=== PATIENT | female | born 1975 ===

== ENCOUNTER 2022-08-18 20:14 | Emergency (ER) | payer OTHER, SELFPAY ==
--- NOTE | ~2022-08-18 | XR_ITS ---
EXAMINATION: XR WRIST, RIGHT XR HAND, RIGHT CLINICAL INFORMATION: Pain. Decreased range of motion COMPARISON: None available. TECHNIQUE: PA, lateral, and oblique views of the right wrist and PA, lateral, and oblique views of the right hand FINDINGS: RIGHT WRIST: The bones and soft tissues are normal. No fracture. Alignment is anatomic. Joint spaces are maintained. No erosions or soft tissue calcifications. RIGHT HAND: The bones and soft tissues are normal. No fracture. Alignment is anatomic. Joint spaces are maintained. No erosions or soft tissue calcifications. XR/XR hand wrist RT IMPRESSION: Normal right hand and wrist.
[2022-08-18 20:18] VITALS: BP 219/100; PULSE 90; RESP 18; TEMP 36.6; O2SAT 98; BMI 32.3
--- NOTE | 2022-08-18 20:19 | ED.UPPEXIN ---
HPI - Extremity Injury (Upper) General Chief Complaint: Extremity Problem Stated Complaint: Right arm pain Time Seen by Provider: 08/18/22 21:31 Source: patient Mode of arrival: ambulatory Limitations: no limitations History of Present Illness HPI narrative: 46-year-old female who presents emergency department for evaluation of right wrist and hand pain x2 days. Patient states that the pain came on gradually. She states that her wrist and hand is swollen and warm to the touch. She denies any injury. She states that she has a similar presentation 2 to 3 times a year and usually involves either the wrist or elbow of her upper extremities. She states that she did have gout many years ago in her left foot and ankle. She denied any recent injury. She denied fever, chills, rhinorrhea, sore throat, cough, chest pain, shortness of breath. Patient states she was recently diagnosed with diabetes and prescribed metformin but has not started this medication yet secondary to the side effect profile. Related Data Previous Rx's Medication Instructions Recorded prednisone 20 mg tablet 40 mg PO DAILY 5 days #10 tabs 08/18/22 Allergies Allergy/AdvReac Type Severity Reaction Status Date / Time No Known Allergies Allergy Verified 08/18/22 20:19 Review of Systems Review of Systems: Yes all other systems are reviewed and are negative [facility]LY [facility] Past Medical History [facility] Narrative: Past medical history: Diabetes mellitus. Social history: She does smoke cigarettes. She denies tobacco and alcohol use. The patient works for the [employer]. Social History Social History Alcohol intake: never Physical Exam Vital Signs: Vital Signs: Last Vital Signs Temp 98.6 F 08/18/22 21:21 Pulse 82 08/18/22 21:21 Resp 16 08/18/22 21:21 BP 145/80 H 08/18/22 21:21 Pulse Ox 100 08/18/22 21:21 O2 Del Method Room Air 08/18/22 21:21 BMI result Body Mass Index 32.3 Elevated blood pressure 145/80. General: Awake, alert, female patient, very pleasant cooperative. No distress Extremities: Patient's right hand and wrist is swollen and warm to the touch, patient has significant pain with minimal movement of her right wrist. She has no increased warmth or swelling of her right elbow or left upper extremity. Her extremities are neurovascular intact RME: 46yo F w/PMHx newly dx DM stated on Metformin (which she hasn't started) c/o R wrist/hand pain x2 days w/decreased ROM. admits to similar sx in the past. denies injury/trauma, fall Patient guarding RUE, diffuse right wrist and hand tenderness with decreased ROM. No erythema/warmth. Neurovascularly intact Hypertensive in triage, EKG a, POC, x-rays ordered Full HPI, ROS and PE to be performed by primary ED provider. Medical Decision Making Medical Decision Making [facility] Narrative: 46-year-old female who presents emergency department for evaluation of gradual onset of pain and swelling of her right hand and wrist. Patient does have a remote history of gout. She states that she gets pain, swelling increased warmth of her wrist and elbow 2 to 3 times a year. Patient denies any injury or trauma. She was recently diagnosed with diabetes mellitus and has not started her metformin yet. Provider at triage ordered a point of care glucose, EKG and x-ray of the right hand and wrist. 2201: Patient's presentation and physical findings are most consistent with gout versus inflammatory arthritis. Infectious arthritis is unlikely specially since she similar symptoms 2-3 times a year and has had no systemic symptoms. Point of care glucose was elevated 169 12 EKG revealed no acute findings. X-rays revealed no acute findings on the radiology interpretation and on my interpretation. Patient was placed in a Velcro wrist splint to help reduce her pain with movement. She is to wear this for 5 days Differential Diagnosis Differential Diagnoses: The differential diagnosis associated with the presentation includes Differential diagnosis includes was not limited to inflammatory arthritis, gout, septic joint Lab Data [facility] Lab Attestation statement: I reviewed the patient's lab results. My interpretation of patient's point of care glucose is that as elevated at 169. This is noncontributory to the patient's presentation. Labs: Lab Results 08/18/22 Range/Units 20:39 POC Glucose 169 H (60-115) mg/dL Independent Interpretation I performed an independent interpretation of an: EKG Interpretation: My interpretation of patient's right hand wrist x-rays as follows: No acute disease noted, no fracture My independent interpretation patient's 12 EKG is as follows: Normal sinus rhythm rate of 81, normal AR interval, QRS duration and QTC intervals, no ST segment elevation, no ST segment depression, no significant T-wave abnormalities. Q-waves V1 and V2. No old EKG for comparison. Radiology Impression Discussion of test interpretation with radiology: I have reviewed the radiologist's reading. Radiologist Impression: XR hand wrist RT IMPRESSION: Normal right hand and wrist. Dictated By:Wu Torres MD Prescription Management I considered prescription management with: Pain Medication Chronic Conditions Patient?s care impacted by: Diabetes Discharge Plan Discharge Clinical Impression: Arthritis of right wrist Patient Disposition: Home, Self-Care Additional Instructions: Your physical exam is consistent with an inflammatory arthritis of your right wrist. This could be caused by gout. There are other causes of inflammatory arthritis, but usually these involve the same joint on both sides of your body. You should follow-up with her doctor to discuss possible workup for gout verses inflammatory arthritis due to other causes. You should start your metformin as prescribed by your doctor Take prednisone 20 mg pills, 2 pills once a day for 5 days. This is a strong anti-inflammatory medication. While you are taking prednisone, do not take any anti-inflammatory NSAIDs (Motrin, Advil, ibuprofen, Aleve, naproxen). Prednisone will increase your blood sugars so it is important to drink fluid to stay hydrated while your on the prednisone and to try to stay on a diabetic diet. Take Tylenol (acetaminophen) 500 mg pills, 2 pills every 4 to 6 hours as needed for pain. Follow-up with your doctor in 2 days. Please return to the emergency department if your symptoms get worse or if you develop any symptoms that are concerning to you. Please see work note Wear the wrist splint for 5 days, keep your wrist elevated to help reduce the swelling You should start taking your metformin as prescribed by your provider. Your goal should be to get your blood sugar below 100 over the next 3-6 months. It is very important that you follow-up with your doctor to aggressively manage her diabetes. Untreated diabetes over time leads to stroke, heart attack and kidney failure Your blood pressure was elevated at 145/80. You should follow-up with her doctor to discuss treatment for possible high blood pressure as well. Prescriptions: New prednisone 20 mg tablet 40 mg PO DAILY 5 Days Qty: 10 0RF Stand Alone Forms: Work/School Release
--- NOTE | 2022-08-18 20:22 | ECG_ITS ---
Test Reason : right shoulder pain Blood Pressure : / mmHG Vent. Rate : 081 BPM Atrial Rate : 081 BPM P-R Int : 172 ms QRS Dur : 070 ms QT Int : 388 ms P-R-T Axes : 051 -14 069 degrees QTc Int : 450 ms Normal sinus rhythm Septal infarct , age undetermined Abnormal ECG No previous ECGs available Referred By: eZny Rivera Electronically Signed By:Jeff Morales
[2022-08-18 20:49] LABS: Glucose, Whole Blood 169 mg/dL (60-115)
[2022-08-18 21:21] VITALS: BP 145/80; PULSE 82; RESP 16; TEMP 37; O2SAT 100
--- OUTSIDE RECORDS SUMMARY | 2022-08-18 21:41 | XMS_ITS | Continuity of Care Document ---
Author Name Unknown Organization [facility] Address [address] [place] [address]- Care Team Providers Care Plate Conditioner Name Role Phone Connie Carr NP Primary Care Physician Encounter [facility] Date(s): 04/29/22 - 05/29/[address] [address]- Attending Physician: Rosa M Gates Admitting Physician: Rosa M Gates Referring Physician: Rosa M Gates Allergies, Adverse Reactions, Alerts No Known Allergies Immunizations Given and Recorded Vaccine Date Status Refusal Reason influenza virus vaccine, inactivated 02/06/19 Give n tetanus/diphtheria/pertussis, acel(Tdap) 11/08/11 Given Social History Social History Type Response Smoking Status 5-9 cigarettes (betw een 1/4 to 1/2 pack)/day in last 30 days entered on: 03/24/22 Sex Patient Care team information Care Team Personnel Name: Connie Carr NP Position: [facility] PCO Associate Professional Member Role: PCP Address: Address: [address] [place] [address]- Care Team Related Persons Name: LEE NAIR Address: home [address] [address] Name: ALFREDITO YOO Address: [address] [address]
--- OUTSIDE RECORDS SUMMARY | 2022-08-18 21:41 | XMS_ITS | Continuity of Care Document ---
Author Name Unknown Organization [facility] Address [address] [place] [address]- Care Team Providers Care Millinery Department Manager Name Role Phone Connie Carr NP Primary Care Physician [phone] [facility] Date(s): 06/28/22 - 07/28/22 [facility] [address] [place] [address]- Attending Physician: Rosa M Gates Admitting Physician: Rosa M Gates Referring Physician: Rosa M Gates Allergies, Adverse Reactions, Alerts Substance Reaction Severity Status Seasonale Active Immunizations Given and Recorded Vaccine Date Status Refusal Reason influenza virus vaccine, inactivated 02/06/19 Give n tetanus/diphtheria/pertussis, acel(Tdap) 11/08/11 Given Problem List Condition Confirmation Course Effective Dates Status Health St [facility] Informant Obese class II Confirmed Active Social History Social History Type Response Smoking Status 5-9 cigarettes (betw een 1/4 to 1/2 pack)/day in last 30 days entered on: 03/24/22 Sex Patient Care team information Care Team Personnel Name: Connie Carr NP Position: [facility] PCO Associate Professional Member Role: PCP Address: Address: [address] [place] [address]- Care Team Related Persons Name: KOREY LEE Address: home [address] [address] Name: ALFREDITO YOO Address: home [address] [place] [address]
--- OUTSIDE RECORDS SUMMARY | 2022-08-18 21:41 | XMS_ITS | Continuity of Care Document ---
Author Name Unknown Organization [facility] Address [address], [place] [address]- Care Team Providers Care Chinese Language Professor Name Role Phone Connie Carr NP Primary Care Physician Encounter [facility] Date(s): 04/01/22 - 05/15/22 [facility] [address] [place] [id number] Attending Physician: Connie Carr NP Allergies, Adverse Reactions, Alerts No Known Allergies [...] Associate Professional Member Role: PCP Address: Address: [address] [place] [id number] Care Team Related Persons Name: KOREYLEE Address: home [address] [facility] [address] [address] Name: ALFREDITO YOO Address: home [address] [address]
--- OUTSIDE RECORDS SUMMARY | 2022-08-18 21:41 | XMS_ITS | Continuity of Care Document ---
Author Name Unknown Organization [facility] Address [address] [place] [address]- Care Team Providers Care Shared Services Representative Name Role Phone Connie Carr NP Primary Care Physician [phone] Encounter [facility] Date(s): 03/23/22 - 05/29/[address] [address]- Attending Physician: Not on Staff, Attending MD Allergies, Adverse Reactions, Alerts No Known Allergies [...] Associate Professional Member Role: PCP Address: Address: [address] [place] [address]- Care Team Related Persons Name: LEE NAIR Address: home [address] [facility] [address] [address] Name: ALFREDITO YOO Address: [address] [address]
--- OUTSIDE RECORDS SUMMARY | 2022-08-18 21:41 | XMS_ITS | Continuity of Care Document ---
Author Name Unknown Organization [facility] Address [address] [place] [address]- Care Team Providers Care Business Economist Name Role Phone Not on Staff, PCP Primary Care Physician Unavail able Encounter [facility] Date(s): 04/27/21 - 05/27/[address] [address] Attending Physician: Rosa M Gates Admitting Physician: Rosa M Gates Referring Physician: AdmtrRosa M Allergies, Adverse Reactions, Alerts No Known Allergies Immunizations Given and Recorded Vaccine Date Status Refusal Reason influenza virus vaccine, inactivated 02/06/19 Give n tetanus/diphtheria/pertussis, acel(Tdap) 11/08/11 Given
--- OUTSIDE RECORDS SUMMARY | 2022-08-18 21:41 | XMS_ITS | Continuity of Care Document ---
Author Name Unknown Organization [facility] Address [address] [place] [address]- Care Team Providers Care Collar Separator Name Role Phone Not on Staff, PCP Primary Care Physician Unavail able Encounter [id number] Date(s): 09/28/19 - 10/28/[address] [address]- [facility] Attending Physician: Rosa M Gates Admitting Physician: AdmRosa M martinez Referring Physician: Admtr, ArSamia Allergies, Adverse Reactions, Alerts Substance Reaction Severity Status NKA Active Immunizations Given and Recorded Vaccine Date Status Refusal Reason influenza virus vaccine, inactivated 02/06/19 Give n tetanus/diphtheria/pertussis, acel(Tdap) 11/08/11 Given
--- OUTSIDE RECORDS SUMMARY | 2022-08-18 21:41 | XMS_ITS | Continuity of Care Document ---
Author Name Unknown Organization [facility] Address [address] [facility], [address], [place] [address]- Care Team Providers Care Transitions Manager Name Role Phone Lilly STEELE, Connie Primary Care Physician Encounter [facility] Date(s): 06/16/22 - 06/23/22 [facility] [address] [facility], [address] [place] [address] Attending Physician: Justin Messina MD Referring Physician: Kelly Ruiz Allergies, Adverse Reactions, Alerts Substance Reaction Severity Status Seasonale Active Immunizations Given and Recorded Vaccine Date Status Refusal Reason influenza virus vaccine, inactivated 02/06/19 Give n tetanus/diphtheria/pertussis, acel(Tdap) 11/08/11 Given Medications ibuprofen 600 mg oral tablet 600 mg, 1, tablet, By Mouth, Every 6 hours, for 5 days, with menses. with food or milk., # 60 tablet, Refills 0, Tot. Refills 0, Acute 06/26/22 14:55:00 EDT, 06/21/22 14:55:00 EDT, Route to Pharmacy Electronically, [facility]/pharmacy #[id number], Partial fill... Start Date: 06/21/22 Stop Date: 06/26/22 Status: Ordered Problem List Condition Confirmation Course Effective Dates Status Health St atus Informant Obese class II Confirmed Active Vital Signs Most recent to oldest [Reference Range]: 1 Height 159.00 cm (06/16/22 1:27 PM) Weight 89.7 kg (06/16/22 1:27 PM) Pulse Rate [55-90 bpm] 83 bpm (06/16/22 1:27 PM) Body Mass Index [18.5-24.99 kg/m2] 35.48 kg/m2 *>HHI* (06/16/22 1:27 PM) Blood Pressure [90-138/55-84 mm Hg] 164/ 93mm Hg *H* (06/16/22 1:27 PM) Blood pressure sites Arm, left (06/16/22 1:27 PM) Dry Weight 89.7 kg (06/16/22 1:27 PM) Weight Obtained Via Standing scale (06/16/22 1:27 PM) Dry Weight Obtained Via Standing scale (06/16/22 1:27 PM) Social History Social History Type Response Smoking Status 5-9 cigarettes (betw een 1/ to 1/2 pack)/day in last 30 days entered on: 03/24/22 Sex Patient Care team information Care Team Personnel Name: Connie Carr NP Position: [facility] PCO Associate Professional Member Role: PCP Address: Address: [address] [place] [address]- Care Team Related Persons Name: LEE NAIR Address: home [address] [place] [address] Name: ALFREDITO YOO Address: [address] [address]
--- OUTSIDE RECORDS SUMMARY | 2022-08-18 21:41 | XMS_ITS | Continuity of Care Document ---
Author Name Unknown Organization [facility] Address [address] [facility], [address] [place] [address]- Care Team Providers Care Spa Consultant Name Role Phone Lilly STEELE, Connie Primary Care Physician [id number] Date(s): 07/30/22 - 08/06/[address] [facility] [address] [facility], [address] [place], [place] [address] Attending Physician: nIdiana Abdi MD Referring Physician: Kelly Ruiz Allergies, Adverse Reactions, Alerts Substance Reaction Severity Status Seasonale Active Immunizations Given and Recorded Vaccine Date Status Refusal Reason influenza virus vaccine, inactivated 02/06/19 Give n tetanus/diphtheria/pertussis, acel(Tdap) 11/08/11 Given Medications metFORMIN 500 mg oral tablet, extended release 1 tablet = 500 mg, By Mouth, 2 times a day, # 60 tablet, 1 Refills, Maintenance, 08/03/22 12:18:00 EDT, ER Tablet, [facility]/pharmacy #[id number], Partial fill upon patient request if the prescription is for a schedule II opioid drug., 159, cm, 07/30/22 13:58:00... Start Date: 08/03/22 Status: Ordered Problem List Condition Confirmation Course Effective Dates Status Health St at[facility] Informant Endometriosis Confirmed Active Hypertension Confirmed Active Obese class II Confirmed Active Current smoker Confirmed Active Vital Signs Most recent to oldest [Reference Range]: 1 2 Height 159.00 cm (07/30/22 1:58 PM) 159.00 cm (07/30/22 1:55 PM) Weight 89.72 kg (07/30/22 1:55 PM) Body Mass Index [18.5-24.99 kg/m2] 35.49 kg/m2 *>HHI* (07/30/22 1:55 PM) Blood Pressure [90-138/55-84 mm Hg] 150/ 90mm Hg *H* (07/30/22 1:58 PM) 170/100mm Hg *H* (07/30/22 1:55 PM) Blood pressure sites Arm, right (07/30/22 1:58 PM) Arm, left (07/30/22 1:55 PM) Social History Social History Type Response Smoking Status 5-9 cigarettes (betw een 1/4 to 1/2 pack)/day in last 30 days entered on: 03/24/22 Sex Patient Care team information Care Team Personnel Name: Connie Carr NP Position: [facility] PCO Associate Professional Member Role: PCP Address: Address: [address] [place] [address]- Care Team Related Persons Name: LEE NAIR Address: home [address] [address] Name: ALFREDITO YOO Address: home [address] [place] [address]
--- OUTSIDE RECORDS SUMMARY | 2022-08-18 21:41 | XMS_ITS | Continuity of Care Document ---
Author Name Unknown Organization [facility] Address [address] [place] [address]- Care Team Providers Care Masking Machine Feeder Name Role Phone Not on Staff, PCP Primary Care Physician Unavail able Encounter [facility] Date(s): 03/23/21 - 05/27/[address] [email or web address] Attending Physician: Not on Staff, Attending MD Allergies, Adverse Reactions, Alerts No Known Allergies Immunizations Given and Recorded Vaccine Date Status Refusal Reason influenza virus vaccine, inactivated 02/06/19 Give n tetanus/diphtheria/pertussis, acel(Tdap) 11/08/11 Given
--- OUTSIDE RECORDS SUMMARY | 2022-08-18 21:41 | XMS_ITS | Continuity of Care Document ---
Author Name Unknown Organization [facility] Address [address] [place] [address]- Care Team Providers Care Locomotive Inspector Name Role Phone Not on Staff, PCP Primary Care Physician Unavail able Encounter [facility] Date(s): 11/02/21 - 11/03/[address] [address]- Discharge Disposition: A-D/C Walkout Attending Physician: Not on Staff, Attending MD Admitting Physician: Not on Staff, Admitting MD Referring Physician: Not on Staff, Referring MD Allergies, Adverse Reactions, Alerts No Known Allergies Immunizations Given and Recorded Vaccine Date Status Refusal Reason influenza virus vaccine, inactivated 02/06/19 Give n tetanus/diphtheria/pertussis, acel(Tdap) 11/08/11 Given Vital Signs Most recent to oldest [Reference Range]: 1 2 3 Oxygen Saturation [94-100 %] 100 % (11/03/21 5:59 AM) 100 % (11/03/21 2:24 AM) 99 % (11/02/21 8:21 PM) Pulse Rate [55-90 bpm] 71 bpm (11/03/21 5:59 AM) 78 bpm (11/03/21 2:24 AM) 105 bpm *H* (11/02/21 8:21 PM) Blood Pressure [90-138/55-84 mm Hg] 181/91mm Hg *H* (11/03/21 5:59 AM) 162/102mm Hg *H* (11/03/21 2:24 AM) Respiratory Rate [16-30 br/min] 16 br/min (11/03/21 2:24 AM) Temperature [96.8-100.4 DegF] 97.5 DegF (11/03/21 5:59 AM) 97.9 DegF (11/03/21 2:24 AM) Mode of Delivery (Oxygen) Room air (11/03/21 5:59 AM) room air (11/03/21 2:24 AM) Blood pressure sites Arm, right (11/03/21 5:59 AM) Arm, right (11/03/21 2:24 AM) Temperature Route Oral (11/03/21 5:59 AM) Oral (11/03/21 2:24 AM) Care Team Personnel Name: Not on Staff, PCP
--- OUTSIDE RECORDS SUMMARY | 2022-08-18 21:41 | XMS_ITS | Continuity of Care Document ---
Author Name Unknown Organization [facility] Address [address] [address]- Care Team Providers Care Fourdrinier Machine Operator Name Role Phone Connie Carr NP Primary Care Physician Encounter [facility] Date(s): 05/05/22 - 06/04/22 [facility] [address], [place] [address] Attending Physician: Rosa M Gates Admitting Physician: [...] Associate Professional Member Role: PCP Address: Address: [address] [place] [address] Care Team Related Persons Name: KOREYLEE Address: home [address] [address] Name: ALFREDITO YOO Address: [address] [address]
--- OUTSIDE RECORDS SUMMARY | 2022-08-18 21:41 | XMS_ITS | Continuity of Care Document ---
Author Name Unknown Organization [facility] Address [address] [place] [address]- Care Team Providers Care Nurse Companion Name Role Phone Connie Carr NP Primary Care Physician Encounter [facility] Date(s): 03/17/22 - 04/16/[address] [address]- Allergies, Adverse Reactions, Alerts No Known Allergies [...] Associate Professional Member Role: PCP Address: Address: [address] [place] [address]- Care Team Related Persons Name: LEE NAIR Address: home [address] [address] Name: ALFREDITO YOO Address: home [address] [address]
--- OUTSIDE RECORDS SUMMARY | 2022-08-18 21:41 | XMS_ITS | Continuity of Care Document ---
Author Name Unknown Organization [facility] Address [address] [place] [address]- Care Team Providers Care Capital Project Engineer Name Role Phone Connie Carr NP Primary Care Physician [id number] Date(s): 03/24/22 - 03/31/22 [facility] [address] [place] [place] [address] Encounter Diagnosis Encounter to establish care with new doctor(Discharge Diagnosis) - 03/24/22 Rash(Discharge Diagnosis) - 03/24/22 Weight loss(Discharge Diagnosis) - 03/24/22 Menopause(Discharge Diagnosis) - 03/24/22 Yeast infection(Discharge Diagnosis) - 03/24/22 Elevated blood pressure reading(Discharge Diagnosis) - 03/24/22 Attending Physician: Connie Carr NP Allergies, Adverse Reactions, Alerts No Known Allergies Immunizations Given and Recorded Vaccine Date Status Refusal Reason influenza virus vaccine, inactivated 02/06/19 Give n tetanus/diphtheria/pertussis, acel(Tdap) 11/08/11 Given Problem List Diagnosis Diagnosis Type Effective Dates Health Status Cl inical Service Informant Encounter to establish care with new doctor Discharge Diagnosis 03/24/22 Rash Discharge Diagnosis 03/24/22 Weight loss Discharge Diagnosis 03/24/22 Menopause Discharge Diagnosis 03/24/22 Yeast infection Discharge Diagnosis 03/24/22 Elevated blood pressure reading Discharge Diagnosis 03/24/22 Procedures Procedure Date Related Diagnosis Body Site Status section Complete d Social History Social History Type Response Smoking Status 5-9 cigarettes (betw een 1/4 to 1/2 pack)/day in last 30 days entered on: 03/24/22 Sex Patient Care team information Care Team Personnel Name: Connie Carr NP Position: [facility] PCO Associate Professional Member Role: PCP Address: Address: [address] [place] [address]- Care Team Related Persons Name: KOREYLEE Address: home [address] [address] Name: ALFREDITO YOO Address: home [address] [address]
--- OUTSIDE RECORDS SUMMARY | 2022-08-18 21:41 | XMS_ITS | Continuity of Care Document ---
Author Name Unknown Organization [facility] Address [address], [address], [place] [address]- Care Team Providers Care Objects Conservator Name Role Phone Connie Carr NP Primary Care Physician Encounter [facility] Date(s): 06/16/22 - 07/16/22 [facility] [place] [facility] [employer] [address] [place] [address]- Allergies, Adverse Reactions, Alerts Substance Reaction Severity [...] Associate Professional Member Role: PCP Address: Address: [address] [place] [address]- Care Team Related Persons Name: LEE NAIR Address: home [address] [address] Name: ALFREDITO YOO Address: home [address] [place] [address]
--- OUTSIDE RECORDS SUMMARY | 2022-08-18 21:41 | XMS_ITS | Continuity of Care Document ---
Author Name Unknown Organization [facility]k [facility] Address [address], [address], [place] [address]- Care Team Providers Care Auto Service Station Attendant Name Role Phone Connie Carr NP Primary Care Physician [place] [facility] Date[place]s): 06/16/22 - 07/16/22 [facility] [place] [employer] [facility] [address] [place] [address]- Allergies, Adverse Reactions, Alerts Substance Reaction Severity [...] Associate Professional Member Role: PCP Address: Address: [address] [place] [address]- Care Team Related Persons Name: LEE NIAR Address: home [address] [address] Name: ALFREDITO YOO Address: home [address] [place] [address]
--- OUTSIDE RECORDS SUMMARY | 2022-08-18 21:41 | XMS_ITS | Continuity of Care Document ---
Author Name Unknown Organization [facility] [facility] Address [address] [place] [address]- Care Team Providers Care Building Maintenance Mechanic Name Role Phone Connie Carr NP Primary Care Physician [phone] [id number] Date(s): 06/16/22 - 08/07/22 [facility] [employer] [facility] [address] [place], [place] [address] Attending Physician: Not on Staff, Attending MD Referring Physician: Kelly Ruiz Allergies, Adverse [...] Refills, Maintenance, 08/03/22 12:18:00 EDT, ER Tablet, [id number], Partial fill upon patient request if the prescription is for a schedule II opioid drug., 159, cm, 07/30/22 13:58:00... Start Date: 08/03/22 Status: Ordered Problem List Condition Confirmation Course Effective Dates Status Health St [facility] Informant Endometriosis Confirmed Active Hypertension Confirmed Active Obese class II Confirmed Active Current smoker Confirmed Active Social History Social History Type Response Smoking Status 5-9 cigarettes (betw een 1/4 to 1/2 pack)/day in last 30 days entered on: 03/24/22 Sex Patient Care team information Care Team Personnel Name: Connie Carr NP Position: S PCO Associate Professional Member Role: PCP Address: Address: [address] [place] [address]- Care Team Related Persons Name: LEE NAIR Address: home [address] [address] Name: ALFREDITO YOO Address: home [address] [place] [address]
[2022-08-18] MEDS: Acetaminophen 325 MG TABLET 975 MG PO (21:58)
[2022-08-18] MEDS: predniSONE 20 MG TABLET 40 MG PO (21:59)
== END 2022-08-18 22:11 | disposition home or self-care (01) ==
PROVIDERS: Emergency Provider Emergency Medicine Emergency Medical Services; PCP Nurse Practitioner Family
DX: M13.831 Other specified arthritis, right wrist (principal); M79.641 Pain in right hand; E11.8 Type 2 diabetes mellitus with unspecified complications; F17.210 Nicotine dependence, cigarettes, uncomplicated
CPT/HCPCS: 73110; 73130; 82947; 93005; 99283; 99284